=== PATIENT | female | born 2005 | race Caucasian/White ===

== ENCOUNTER 2023-06-10 11:45 | Inpatient (IN) ==
[2023-06-10] MEDS ORDERED: Lactated Ringers 1000 ml BAG 1,000 ML IV ONE (12:26)
[2023-06-10] MEDS ORDERED: Lidocaine 1% VIAL 10 MG/ML 30 ML VIAL INJ PRN (12:26)
[2023-06-10] MEDS ORDERED: Buffered Lidocaine 1% SYRIN 1 ml INTRADERM ONE (12:26)
[2023-06-10 13:31] LABS: ABS Eosinophils 0.1 10^3/uL (0.0-0.5); ABS Monocytes 0.6 10^3/uL (0.0-0.9); ABS Neutrophils 7.3 10^3/uL (1.5-7.6); ABS Nucleated RBC 0.01 10^3/ul; Eosinophil % 0.8 %; Hematocrit 36.9 % (35-45); Lymphocyte % 19.8 %; Mean Corpuscular Hemoglobin 33.2 pg (27-33); Mean Corpuscular Hgb Conc 35.2 g/dL (31-36); Mean Corpuscular Volume 94.2 fL (80-97); Mean Platelet Volume 7.6 fL (7.5-11.2); Nucleated Red Blood Cells % 0.1 %/100WBC (0.0-0.8); Platelet Count 165 10^3/uL (150-450); Red Blood Count 3.92 10^6/uL (3.63-4.92); Red Cell Distribution Width 13.7 % (12-17)
[2023-06-10 13:34] LABS: Urine Benzodiazepine Screen None Detected (None Detect); Urine Cannabinoids Screen None Detected (None Detect); Urine Opiates Screen None Detected (None Detect)
[2023-06-10] MEDS ORDERED: Oxytocin in LR 20,000 MILLI.UNIT/1,000 ML BAG IV SCH (18:10)
[2023-06-10] MEDS: Lactated Ringers 1000 ml BAG 1,000 ML IV SCH ×2 (18:42→21:07)
[2023-06-10] MEDS ORDERED: Morphine 10 MG/ML VIAL (1 ml) IV ONE (20:18)
[2023-06-10] MEDS ORDERED: Promethazine INJ(RESTRICTED) 25 MG/ML 1 ml VIAL IV PRN (20:18)
[2023-06-10] MEDS ORDERED: OBEPIDURAL (200 ML) 200 ML EPIDURAL ONE (20:31)
[2023-06-10] MEDS ORDERED: Lidocaine 1.5% EPI 1:200,000 30 ML SDV ONE (20:32)
[2023-06-11] MEDS ORDERED: Morphine 10 MG/ML VIAL (1 ml) IV ONE (03:22)
[2023-06-11] MEDS: Lactated Ringers 1000 ml BAG 1,000 ML IV SCH (07:21)
[2023-06-11] MEDS ORDERED: Lidocaine 2% JELLY 6 ML Topical TOPICAL ONE ×2 (08:25→09:06)
[2023-06-11] MEDS ORDERED: Witch Hazel PAD JAR TOPICAL PRN (09:08)
[2023-06-11] MEDS ORDERED: Glycerin ADULT 2.4 gm SUPP PR PRN (09:08)
[2023-06-11] MEDS ORDERED: Dibucaine 1% OINT 28.35 GM TUBE PR PRN (09:08)
[2023-06-11] MEDS ORDERED: Lidocaine 1% VIAL 10 MG/ML 30 ML VIAL ONE (09:59)
[2023-06-11] MEDS ORDERED: Lactated Ringers 1000 ml BAG 1,000 ML IV SCH (10:00)
[2023-06-12 07:27] LABS: ABS Basophils 0.1 10^3/uL (0.0-0.1); ABS Eosinophils 0.1 10^3/uL (0.0-0.5); ABS Lymphocytes 2.9 10^3/uL (1.0-4.8); ABS Monocytes 0.9 10^3/uL (0.0-0.9); ABS Neutrophils 10.2 10^3/uL (1.5-7.6); Eosinophil % 0.4 %; Hematocrit 32.4 % (35-45); Hemoglobin 11.3 g/dL (11.5-14.3); Lymphocyte % 20.5 %; Mean Corpuscular Hemoglobin 33.5 pg (27-33); Mean Corpuscular Hgb Conc 34.9 g/dL (31-36); Mean Corpuscular Volume 95.9 fL (80-97); Mean Platelet Volume 7.6 fL (7.5-11.2); Platelet Count 142 10^3/uL (150-450); Red Blood Count 3.38 10^6/uL (3.63-4.92); Red Cell Distribution Width 13.9 % (12-17); White Blood Count 14.1 10^3/uL (3.8-11.8)
[2023-06-12] MEDS ORDERED: Tetan/Diph/Pertus SYR(Tdap) 0.5 ML SYR(BOOSTRIX) use SYR contains LATEX IM ONE (09:39)
[2023-06-13] MEDS ORDERED: medroxyPROGESTERone ACETATE 150 MG/ML VIAL IM ONE (11:50)
[2023-06-13 12:36] VITALS: BP 126/75
== END 2023-06-13 13:49 | disposition home or self-care (01) | DRG 560 ==
LOC: MCHOBOUT 11:45 → MCHOB 12:59
PROVIDERS: ADMIT Midwife; ATTEND Midwife